=== PATIENT | male | born 1980 | race Caucasian/White ===

== ENCOUNTER 2017-01-21 15:58 | Emergency (ER) | payer BC ==
[~2017-01-21] VITALS: Ht 167.6 cm; Wt 81.3 kg
[~2017-01-21 15:58] MED LIST: CYCL10TA6 PO; DICL-201 PO; HYDR1TAB2 PO
[2017-01-21 16:02] VITALS: TEMP 36.5; Ht 167.6 cm; Wt 81.3 kg
[2017-01-21] MEDS ORDERED: DIPHTHERIA/TETANUS/PERTUSSIS 0.5 ML SYR/VIAL IM. ONE (16:45)
[2017-01-21] MEDS ORDERED: XYLOCAINE 1%/SOD BICARB 20 ML VIAL INFIL ONE (16:45)
[2017-01-21 17:34] VITALS: BP 143/81; PULSE 80; O2SAT 96
--- NOTE | 2017-01-21 23:54 | EMERGENCY ROOM VISIT NOTE ---
ED Visit Note First contact with patient: 16:31 CHIEF COMPLAINT: Finger laceration HISTORY OF PRESENT ILLNESS: This 36-year-old male patient presents to the emergency department after cutting the left third finger on the back of an air conditioning unit about 3 hours ago. The bleeding has not stopped. Denies weakness or numbness of the finger. The patient has full range of motion of the fingers. The patient rates the pain as dull and 5/10. The patient denies any other injuries. The patient's tetanus shot is not up to date. REVIEW OF SYSTEMS: A 6 system review of systems was completed with positives and pertinent negatives listed in the HPI. ALLERGIES: No known allergies MEDICATIONS: No chronic medications PMH: Otherwise healthy SOCIAL HISTORY: Employed and lives locally PHYSICAL EXAM: Vital Signs: Reviewed Nurse's notes, vital signs stable. GENERAL : White male, in no acute distress, well developed, well nourished. SKIN: There are several lacerations along the palmar distal aspect of the left third finger. In total there are 9 lacerations, each approximately 1 mm apart. Of these 9 lacerations 3 of them do penetrate deeply and reveal underlying tissue. In total these 3 lacerations measure 6 cm in length. There is no foreign material in the wound and it looks clean. There is persistent bleeding. No deep structures such as tendons, bones, or significant blood vessels are seen in the base of the wound. Extension and flexion of the finger is full and strong. Full range of motion of the wrist and other fingers. Capillary refill less than 2 seconds. Normal sensation to light and sharp touch. EMERGENCY DEPARTMENT COURSE: I examined the patient. Verbal consent was obtained to perform the procedure. Using sterile technique the wound was cleansed with Betadine. 6 ml of 1% buffered lidocaine was used to perform a digital block to anesthetize the patient. The area was sterilely draped. Once the patient was anesthetized, the wound was copiously irrigated under pressure with sterile saline. The wound was explored and there were no deep structures injured. The laceration was repaired using 5 simple interrupted 5-0 nylon sutures. The patient tolerated the procedure well. Hemostasis was achieved. The area was cleaned with sterile saline and dressed with bacitracin ointment and bandage. The patient was given a tetanus booster. The patient was discharged home in good condition. Current/Historical Medications No Active Prescriptions or Reported Meds Allergies Coded Allergies: No Known Allergies (Verified , 09/08/02) Vital Signs Date Time Temp Pulse Resp B/P (MAP) Pulse Ox O2 Delivery O2 Flow Rate FiO2 01/21/17 17:34 80 16 143/81 96 01/21/17 16:02 36.5 93 16 153/96 97 Room Air Medications Administered Medications (Trade) Dose Ordered Sig/Kristopher Route Start Time Stop Time Status Last Admin Dose Admin Diphtheria/ Pertussis/Tetanus Vacc (Adacel Inj) 0.5 ml ONCE ONCE IM. 01/21/17 16:45 01/21/17 16:46 DC 01/21/17 16:44 0.5 ML Departure Information Impression Primary Impression: Laceration of finger Dispostion Home / Self-Care Condition GOOD Prescriptions No Active Prescriptions or Reported Meds Forms HOME CARE DOCUMENTATION FORM, IMPORTANT VISIT INFORMATION Patient Instructions My [facility] Additional Instructions Keep wound clean and dry. Do not allow any crusting or dried blood to accumulate on sutures. If this occurs, use a mild soap/water on a Q-tip to clean the wound. Do not use Peroxide to clean the wound as this can delay healing Use an antibiotic ointment like Bacitracin for 3-4 days, then let wound dry. You may bathe and shower as normal, but DO NOT SOAK the wound. Suture removal in about 8-10 days with your Family Doctor or in the ER. Return sooner for any signs of infection, increasing redness, swelling, or drainage.
== END 2017-01-21 17:43 | disposition home or self-care (01) ==
LOC: C.EDB 16:00 → C.EDD 17:43
DX: S61.213A Laceration without foreign body of left middle finger without damage to nail, initial encounter (principal); Z23 Encounter for immunization; W26.2XXA Contact with edge of stiff paper, initial encounter